=== PATIENT | female | born 1990 | race American Indian/Alaskan Native ===

== ENCOUNTER 2016-10-23 16:17 | Emergency (ER) | payer MEDICAID ==
[~2016-10-23] VITALS: Ht 165.1 cm; Wt 64.0 kg
[2016-10-23] MEDS ORDERED: ALBUTEROL/IPRATROPIUM 2.5MG/0.5MG, 3 ML ONE (16:45)
[2016-10-23] MEDS ORDERED: ALBUTEROL/IPRATROPIUM 2.5MG/0.5MG, 3 ML NPPB ONE (17:00)
[2016-10-23 17:56] VITALS: BP 97/65
== END 2016-10-23 18:04 | disposition home or self-care (01) ==
LOC: ED 17:30
DX: J45.31 Mild persistent asthma with (acute) exacerbation (principal); F17.200 Nicotine dependence, unspecified, uncomplicated
CPT/HCPCS: 71020; 93005; 94640; 99284; J7620

== ENCOUNTER 2017-01-04 14:26 | Emergency (ER) | payer MEDICAID ==
[~2017-01-04] VITALS: Ht 165.1 cm; Wt 66.0 kg
[2017-01-04 14:28] VITALS: BP 123/79
[2017-01-04] MEDS ORDERED: LIDOCAINE 1%, 20ML ONE (14:47)
[2017-01-04] MEDS ORDERED: HYDROcodone/APAP 5/325 TABLET ONE (14:49)
[2017-01-04] MEDS ORDERED: LIDOCAINE 1%, 20ML SQ ONE (15:00)
[2017-01-04] MEDS ORDERED: HYDROcodone/APAP 5/325 TABLET PO ONE (15:00)
== END 2017-01-04 16:11 | disposition home or self-care (01) ==
LOC: ED 15:30
DX: L02.31 Cutaneous abscess of buttock (principal); J45.909 Unspecified asthma, uncomplicated; Z88.0 Allergy status to penicillin; Z88.1 Allergy status to other antibiotic agents
CPT/HCPCS: 10060; 99283; J3490

== ENCOUNTER 2017-01-06 13:15 | Emergency (ER) | payer MEDICAID ==
[~2017-01-06] VITALS: Ht 167.6 cm; Wt 66.5 kg
[2017-01-06 13:17] VITALS: BP 118/76
== END 2017-01-06 14:32 | disposition home or self-care (01) ==
LOC: ED 14:15
DX: L02.31 Cutaneous abscess of buttock (principal); J45.909 Unspecified asthma, uncomplicated
CPT/HCPCS: 99283

== ENCOUNTER 2017-01-10 19:00 | Emergency (ER) | payer MEDICAID ==
[~2017-01-10] VITALS: Ht 170.2 cm; Wt 68.4 kg
[2017-01-10 19:36] LABS: ASPARTATE AMINO TRANSFERASE 17 U/L (15-37); BLOOD UREA NITROGEN 13 mg/dL (7-18)
[2017-01-10 19:41] LABS: ACETAMINOPHEN < 2 mcg/mL (10-30)
[2017-01-10 21:51] VITALS: BP 121/86
== END 2017-01-10 21:55 | disposition home or self-care (01) ==
LOC: ED 19:37
DX: F10.129 Alcohol abuse with intoxication, unspecified (principal); J45.909 Unspecified asthma, uncomplicated; Z88.0 Allergy status to penicillin
CPT/HCPCS: 36415; 80053; 80307; 80329; 85025; 99284; G0480

== ENCOUNTER 2017-08-22 17:39 | Emergency (ER) | payer MEDICAID ==
[~2017-08-22] VITALS: Ht 165.1 cm; Wt 70.4 kg
[2017-08-22 17:56] VITALS: BP 121/79
[2017-08-22 18:44] LABS: RAPID INFLUENZA A Negative (Negative); RAPID INFLUENZA B Negative (Negative)
== END 2017-08-22 21:07 | disposition home or self-care (01) ==
LOC: ED 21:00
DX: J20.9 Acute bronchitis, unspecified (principal); J45.909 Unspecified asthma, uncomplicated; R10.30 Lower abdominal pain, unspecified
CPT/HCPCS: 71046; 87400; 93005; 99285

== ENCOUNTER 2019-07-03 18:54 | Emergency (ER) | payer MEDICAID ==
[~2019-07-03] VITALS: Ht 165.1 cm; Wt 75.0 kg
--- NOTE | 2019-07-03 19:05 | NUR ---
PT HERE WITH C/O SEVERE LEFT LOWER QUADRANT ABDOMINAL PAIN X 1 DAY WITH ASSOCIATED WITH VAGINAL BLEEDING. PT STATES PREVIOUS MISCARRIAGE AND POSSIBLE NOW. PT AAO X 4, NAD, ROOM AIR, CALL LIGHT WITHIN REACH, SIDERAIL X [address] PA AT BEDSIDE. PT HAS HX METH AND ETOH ABUSE.
--- NOTE | 2019-07-03 19:31 | NUR ---
PT TO US.
[2019-07-03 19:35] LABS: BASOPHILS # (AUTO) 0.03 x10^3/uL (0-0.1); BASOPHILS % (AUTO) 0 % (0-1); EOSINOPHILS # (AUTO) 0.17 x10^3/uL (0-0.4); EOSINOPHILS % (AUTO) 2 % (1-7); LYMPHOCYTES % (AUTO) 33 % (22-44); MD NO; MEAN CORPUSCULAR HEMOGLOBIN 28.1 pg (27.0-34.8); MEAN CORPUSCULAR HGB CONC 33.8 g/dL (32.4-35.8); MEAN CORPUSCULAR VOLUME 83.1 fL (80-100); MEAN PLATELET VOLUME 9.2 fL (7.4-10.4); MONOCYTES # (AUTO) 0.85 x10^3/uL (0.2-0.8); MONOCYTES % (AUTO) 10 % (2-9); NEUTROPHILS # (AUTO) 4.93 x10^3/uL (1.8-6.8); NEUTROPHILS % (AUTO) 55 % (42-75); PLATELET COUNT 289 x10^3/uL (130-400); RED CELL DISTRIBUTION WIDTH 14.9 % (9.6-15.2)
[2019-07-03 19:37] LABS: ALBUMIN 3.5 g/dL (3.4-5.0); ANION GAP 5 mmol/L (5-15); CALCIUM 8.8 mg/dL (8.5-10.1); CHLORIDE 108 mmol/L (98-107)
[2019-07-03 19:42] LABS: ALANINE AMINOTRANSFERASE 30 U/L (12-78); ALKALINE PHOSPHATASE 86 U/L (45-117); BILIRUBIN,TOTAL 0.4 mg/dL (0.2-1.0); CREATININE 0.88 mg/dL (0.55-1.02); TOTAL PROTEIN 7.2 g/dL (6.4-8.2)
--- NOTE | 2019-07-03 20:09 | NUR ---
PT BACK FROM US, EDUCATED ON NEED FOR STRAIGHT CATH URINE AND PT STATED SHE JUST VOIDED BEFORE COMING BACK TO ROOM FROM US.
--- NOTE | 2019-07-03 21:03 | NUR ---
REPORT RECIEVED FROM ELVIN LOCKE. ASSUMED CARE OF PT. PT RESTING ON GURNEY IN NAD. AWAITING TEST RESULTS AT THIS TIME, WILL CONTINUE TO MONITOR.
--- NOTE | 2019-07-03 21:03 | NUR ---
REPORT GIVEN TO ELVIN KAISER. CARE TRANSFERRED.
[2019-07-03 21:32] LABS: CULTURE INDICATED? YES; MICROSCOPIC INDICATED
[2019-07-03] MEDS ORDERED: FOSFOMYCIN 3 GM PACKET PO STA (22:01)
[2019-07-03] MEDS ORDERED: FOSFOMYCIN 3 GM PACKET ONE (22:52)
[2019-07-03 22:55] VITALS: BP 115/71
--- NOTE | 2019-07-03 22:56 | NUR ---
PT MEDICATED PER EMAR. 5 RIGHTS ADDRESSED
--- NOTE | 2019-07-03 23:11 | NUR ---
Patient/Caregiver given discharge instructions and they have confirmed that they understand the instructions. Patient ambulatory with steady gait.
== END 2019-07-03 23:13 | disposition home or self-care (01) ==
LOC: ED 22:06
DX: N30.00 Acute cystitis without hematuria (principal); F15.20 Other stimulant dependence, uncomplicated; F17.210 Nicotine dependence, cigarettes, uncomplicated; J45.909 Unspecified asthma, uncomplicated
CPT/HCPCS: 36415; 76830; 80053; 81001; 84703; 85025; 87077; 87086; 99284